=== PATIENT | male | born 1995 | race Two or more races ===

== ENCOUNTER 2025-01-04 16:18 | Emergency (ER) | payer BC ==
[~2025-01-04] VITALS: Ht 162.6 cm; Wt 68.0 kg
== END 2025-01-04 18:01 | disposition home or self-care (01) ==
LOC: ER 16:21
DX: S40.012A Contusion of left shoulder, initial encounter (principal); W19.XXXA Unspecified fall, initial encounter; Y93.89 Activity, other specified; Y92.832 Beach as the place of occurrence of the external cause; Y99.9 Unspecified external cause status